=== PATIENT | male | born 1945 | race Two or more races ===

== ENCOUNTER 2019-04-08 16:38 | Emergency (ER) | payer OTHER, MEDICAID ==
[~2019-04-08] VITALS: Ht 175.3 cm; Wt 66.2 kg
--- NOTE | 2019-04-08 16:57 | NUR ---
PT BIB SELF C/O BLOOD IN STOOL x 3 DAYS, +NAUSEA, -DIARRHEA, PT IS AAOX3, NOT IN RESPIRATORY DISTRESS, HOOKED TO MONITOR, KEPT RESTED AND COMFORTABLE, WILL CONTINUE TO MONITOR, AWIATING ER MD FOR EVAL.
--- NOTE | 2019-04-08 17:05 | NUR ---
AT BEDSIDE FOR EVAL.
--- NOTE | 2019-04-08 17:20 | NUR ---
URINE SPECIMEN COLLECTED AND SENT TO LAB.
--- NOTE | 2019-04-08 17:24 | NUR ---
IV LINE ESTABLISHED, BLOOD DRAWNED AND SENT TO LAB.
[2019-04-08] MEDS ORDERED: IV NS 0.9% 1,000 ML BAG IV ONE (17:30)
[2019-04-08 17:33] LABS: APPEARANCE,URINE Clear (CLEAR); BILIRUBIN,URINE Negative (NEGATIVE); BLOOD, URINE Trace-intact Ery/uL (NEGATIVE); COLOR,URINE Yellow (YELLOW); KETONES,URINE 40 (NEGATIVE); LEUKOCYTE ESTERASE ,URINE Negative (NEGATIVE); NITRITE, URINE Negative (NEGATIVE); PH,URINE 5.5 (5.0-8.0); PROTEIN,URINE Negative (NEGATIVE); UGLUCOSE Negative (NEGATIVE); UROBILINOGEN,URINE 0.2 EU/dL (0.2)
[2019-04-08 17:34] LABS: CREATININE 1.2 mg/dL (0.6-1.3); POTASSIUM 3.7 mmol/L (3.5-5.1)
[2019-04-08 17:37] LABS: BASOPHILS # (AUTO) 0.1 /CMM (0.0-0.2); BASOPHILS % (AUTO) 0.7 % (0.0-2.0); EOSINOPHILS % (AUTO) 0.6 % (0.0-6.0); HEMATOCRIT 56 % (39-51); HEMOGLOBIN 18.1 g/dL (13.5-17.5); LYMPHOCYTES # (AUTO) 1.1 /CMM (0.8-4.8); LYMPHOCYTES % (AUTO) 10.1 % (20.0-44.0); MEAN CORPUSCULAR HGB CONC 32 g/dl (31.0-36.0); MEAN CORPUSCULAR VOLUME 95 fL (80-96); MONOCYTES # (AUTO) 0.5 /CMM (0.1-1.30); NEUTROPHILS # (AUTO) 8.9 /CMM (1.8-8.9); NEUTROPHILS % (AUTO) 83.6 % (43.0-81.0); PLATELET COUNT (AUTO) 282 /CMM (150-450); RED BLOOD CELL COUNT(AUTO) 5.93 MIL/uL (4.5-6.0); WHITE BLOOD COUNT (AUTO) 10.6 K/uL (4.3-11.0)
[2019-04-08 17:40] LABS: ALBUMIN 3.9 g/dL (3.4-5.0); BILIRUBIN,DIRECT 0.3 mg/dL (0.0-0.2); BILIRUBIN,TOTAL 0.9 mg/dL (0.2-1.0); TOTAL PROTEIN, SERUM 7.1 g/dL (6.4-8.2)
--- NOTE | 2019-04-08 17:40 | NUR ---
PT IS WHEELED TO CT SCAN VIA [facility].
[2019-04-08 17:49] LABS: BACTERIA,URINE Rare /HPF (None Seen); SQUAMOUS EPITHELIAL CELL,UR Few /HPF (None Seen); WBC,URINE NONE SEEN /HPF (0-3)
[2019-04-08 18:00] VITALS: BP 136/87
--- NOTE | 2019-04-08 18:14 | NUR ---
IV removed. Catheter intact and site benign. Pressure and 4x4 applied to site. No bleeding noted.Patient discharged to home in stable condition. Written and verbal after care instructions given. Patient verbalizes understanding of instruction.
[2019-04-08 20:20] LABS: LYMPHOCYTES % (MANUAL) 10 % (16-48); MONOCYTES % (MANUAL) 2 % (0-11.0); NEUTROPHILS % (MANUAL) 88 (42-76)
== END 2019-04-08 18:15 | disposition home or self-care (01) ==
LOC: ER 16:38
DX: K92.1 Melena (principal)
CPT/HCPCS: 36415; 74176; 80048; 80076; 81001; 85025; 87040 ×2; 99284; J7030; 81000-TC

== ENCOUNTER 2019-04-16 07:07 | Emergency (ER) | payer OTHER, MEDICAID ==
[~2019-04-16] VITALS: Ht 175.3 cm; Wt 66.2 kg
--- NOTE | 2019-04-16 07:13 | NUR ---
PT BIBSELF C/O HEART PALPITATIONS. -SOB, +NAUSEA, +HEADACHE, PT IS AAOX4, NOT IN RESPIRATORY DISTRESS, HOOKED TO MONITOR, KEPT RESTED AND COMFORTABLE, WILL CONTINUE TO MONITOR.
--- NOTE | 2019-04-16 07:31 | NUR ---
SEEN AND EXAMINED BY
--- NOTE | 2019-04-16 07:33 | NUR ---
IV LINE ESTABLISHED, BLOOD DRAWNED AND SENT TO LAB.
[2019-04-16 07:44] LABS: BASOPHILS # (AUTO) 0.1 /CMM (0.0-0.2); EOSINOPHILS % (AUTO) 1.5 % (0.0-6.0); HEMATOCRIT 54 % (39-51); HEMOGLOBIN 17.4 g/dL (13.5-17.5); LYMPHOCYTES # (AUTO) 1.3 /CMM (0.8-4.8); LYMPHOCYTES % (AUTO) 15.4 % (20.0-44.0); MEAN CORPUSCULAR HGB CONC 32 g/dl (31.0-36.0); MEAN CORPUSCULAR VOLUME 96 fL (80-96); MONOCYTES # (AUTO) 0.4 /CMM (0.1-1.30); MONOCYTES % (AUTO) 5.1 % (2.0-12.0); NEUTROPHILS # (AUTO) 6.5 /CMM (1.8-8.9); PLATELET COUNT (AUTO) 372 /CMM (150-450); RED BLOOD CELL COUNT(AUTO) 5.68 MIL/uL (4.5-6.0); WHITE BLOOD COUNT (AUTO) 8.5 K/uL (4.3-11.0)
--- NOTE | 2019-04-16 07:49 | NUR ---
[employer] OPERATOR AT BEDSIDE FOR XRAY.
[2019-04-16 07:55] LABS: CALCIUM, SERUM 8.6 mg/dL (8.5-10.1); CARBON DIOXIDE 26 mmol/L (21-32); CHLORIDE 105 mmol/L (98-107); CREATININE 1.2 mg/dL (0.6-1.3); GLUCOSE 98 mg/dL (74-106); POTASSIUM 4.3 mmol/L (3.5-5.1); SODIUM SERUM 140 mmol/L (136-145); UREA NITROGEN, BLOOD 17 mg/dL (7-18)
[2019-04-16 09:43] LABS: THYROID STIMULATING HORMONE 2.599 uIU/mL (0.358-3.74)
--- NOTE | 2019-04-16 10:29 | NUR ---
IV removed. Catheter intact and site benign. Pressure and 4x4 applied to site. No bleeding noted. Patient discharged to home in stable condition. Written and verbal after care instructions given. Patient verbalizes understanding of instruction.
[2019-04-16 10:30] VITALS: BP 143/79
== END 2019-04-16 10:30 | disposition home or self-care (01) ==
LOC: ER 07:07
DX: R00.2 Palpitations (principal); I10 Essential (primary) hypertension; K21.9 Gastro-esophageal reflux disease without esophagitis
CPT/HCPCS: 36415; 71045-TC; 80048-TC; 84439-TC; 84443-TC; 84484-TC; 85025-TC

== ENCOUNTER 2021-11-08 19:50 | Emergency (ER) | payer OTHER ==
[~2021-11-08] VITALS: Ht 172.7 cm; Wt 67.1 kg
--- NOTE | 2021-11-08 20:05 | NUR ---
SHRAVAN REQUESTING FOR US ON RLE. TREE BRANCH FELL ON HIS FOOT [id number] AGO WAS SEEN AT URGENT CARE. XRAY NEG. PT AMBULATORY WITH STEADY GAIT. PT A/OX4. TOLERATING R/A WELL WITH NO SOB
[2021-11-08] MEDS ORDERED: KETOROLAC TROMETHAMINE INJ 30 MG/ML VIAL IM ONE (20:30)
--- NOTE | 2021-11-08 20:36 | NUR ---
DUPLEX VENOUS BEING DONE AT BEDSIDE
[2021-11-08] MEDS ORDERED: KETOROLAC TROMETHAMINE INJ 30 MG/ML VIAL ONE (20:44)
[2021-11-08] MEDS ORDERED: CLIN300C12 PO (21:45)
[2021-11-08] MEDS ORDERED: IBUP-1957 PO (21:52)
--- NOTE | 2021-11-08 23:00 | NUR ---
Patient discharged to home in stable condition. Written and verbal after care instructions given. Patient verbalizes understanding of instruction.
[2021-11-09 00:05] VITALS: BP 149/73
== END 2021-11-08 23:00 | disposition home or self-care (01) ==
LOC: ER 19:55
DX: L03.115 Cellulitis of right lower limb (principal); I10 Essential (primary) hypertension; K21.9 Gastro-esophageal reflux disease without esophagitis
CPT/HCPCS: 93971; 96372; 99284; J1885

== ENCOUNTER 2022-01-20 22:00 | Emergency (ER) | payer OTHER ==
[~2022-01-20] VITALS: Ht 172.7 cm; Wt 74.8 kg
[2022-01-20 22:00] VITALS: BP 147/79
[~2022-01-20 22:00] MED LIST: CLIN300C12 PO; IBUP-1957 PO
[2022-01-21] MEDS ORDERED: IBUPROFEN 400 MG TABLET PO ONE
[2022-01-21] MEDS ORDERED: HYDR-4275 PO (00:06)
[2022-01-21] MEDS ORDERED: HYDROCODONE/APAP 5/325MG TABLET ONE (00:30)
[2022-01-21] MEDS ORDERED: HYDROCODONE/APAP 5/325MG TABLET PO ONE (00:30)
--- NOTE | 2022-01-21 00:35 | NUR ---
Patient discharged to home in stable condition. Written and verbal after care instructions given. Patient verbalizes understanding of instruction.
== END 2022-01-21 00:35 | disposition home or self-care (01) ==
LOC: ER 22:04
DX: S52.502A Unspecified fracture of the lower end of left radius, initial encounter for closed fracture (principal); I10 Essential (primary) hypertension; K21.9 Gastro-esophageal reflux disease without esophagitis; Z79.899 Other long term (current) drug therapy; W18.30XA Fall on same level, unspecified, initial encounter; Y93.89 Activity, other specified; Y92.89 Other specified places as the place of occurrence of the external cause; Y99.8 Other external cause status
CPT/HCPCS: 73110

== ENCOUNTER 2023-07-02 02:59 | Emergency (ER) | payer OTHER ==
[~2023-07-02] VITALS: Ht 172.7 cm; Wt 65.8 kg
[~2023-07-02 02:59] MED LIST changes: +HYDR-4275 PO
[2023-07-02] MEDS ORDERED: LIDOCAINE 1%-EPI 1:100,000 20 ML VIAL ONE (03:22)
[2023-07-02] MEDS ORDERED: ACETAMINOPHEN 325 MG TABLET PO ONE (03:30)
[2023-07-02] MEDS ORDERED: LIDOCAINE 1%-EPI 1:100,000 50 ML VIAL IJ ONE (04:00)
[2023-07-02] MEDS ORDERED: TYL2T PO (04:44)
[2023-07-02] MEDS ORDERED: ACETAMINOPHEN ES 500 MG TABLET ONE (04:51)
[2023-07-02 05:12] VITALS: BP 133/54; TEMP 98; O2SAT 98
== END 2023-07-02 05:13 | disposition home or self-care (01) ==
LOC: ER 03:03
DX: S01.81XA Laceration without foreign body of other part of head, initial encounter (principal); S01.21XA Laceration without foreign body of nose, initial encounter; I10 Essential (primary) hypertension; K21.9 Gastro-esophageal reflux disease without esophagitis; W22.8XXA Striking against or struck by other objects, initial encounter; Y93.89 Activity, other specified; Y92.89 Other specified places as the place of occurrence of the external cause; Y99.8 Other external cause status
CPT/HCPCS: 12013; 99283; A6403; J3490

== ENCOUNTER 2023-10-10 23:40 | Emergency (ER) | payer OTHER ==
[~2023-10-10] VITALS: Ht 172.7 cm; Wt 63.5 kg
[~2023-10-10 23:40] MED LIST changes: +TYL2T PO
[2023-10-11] MEDS: ACETAMINOPHEN ES 500 MG TABLET PO ONE (00:57)
[2023-10-11] MEDS ORDERED: ACETAMINOPHEN ES 500 MG TABLET ONE (00:57)
[2023-11-15 16:01] VITALS: BP 145/78; TEMP 98.7; O2SAT 100
== END 2023-10-11 00:51 | disposition home or self-care (01) ==
LOC: ER 23:47
DX: S01.111A Laceration without foreign body of right eyelid and periocular area, initial encounter (principal); S09.90XA Unspecified injury of head, initial encounter; I10 Essential (primary) hypertension; K21.9 Gastro-esophageal reflux disease without esophagitis; Y04.0XXA Assault by unarmed brawl or fight, initial encounter; Y93.89 Activity, other specified; Y92.89 Other specified places as the place of occurrence of the external cause; Y99.8 Other external cause status; Z79.899 Other long term (current) drug therapy
CPT/HCPCS: 70450-TC